=== PATIENT | male | born 1950 | race Caucasian/White ===

== ENCOUNTER 2021-01-28 11:05 | Inpatient (IN) | payer OTHER ==
[2021-01-28 12:31] VITALS: BMI 28.9
[2021-01-28] MEDS ORDERED: NICOTINE 10 MG CARTRIDGE (INHALER) IH PRN (14:12)
[2021-01-28] MEDS ORDERED: MAG HYDROX/AL HYDROX/SIMETH 30 ML UNIT-DOSE CUP PO PRN (14:12)
[2021-01-28] MEDS ORDERED: MENTHOL/PHENOL 1 EACH UD MM PRN (14:12)
[2021-01-28] MEDS ORDERED: MAGNESIUM HYDROX 2400MG/30ML ORAL SUSPENSION 30 ML CUP PO PRN (14:12)
[2021-01-28] MEDS ORDERED: BISMUTH SUBSALICYLATE 262 MG/15 ML BTL PO PRN (14:12)
[2021-01-28] MEDS ORDERED: ONDANSETRON *ODT* 4 MG TABLET SL PRN (14:12)
[2021-01-28] MEDS ORDERED: IBUPROFEN 400 MG TABLET (FP) PO PRN (14:12)
[2021-01-28] MEDS ORDERED: MAGNESIUM CITRATE 300 ML BOTTLE PO PRN (14:12)
[2021-01-28] MEDS ORDERED: ACETAMINOPHEN 325 MG TABLET (FP) PO PRN ×2 (14:12)
[2021-01-28] MEDS: GABAPENTIN 300 MG CAPSULE PO SCH ×2 (15:27→22:21)
[2021-01-28 15:28] LABS: HEMATOCRIT 37.7 % (35.4-49); HEMOGLOBIN 12.7 GM/dL (11.7-16.9); MCH 30.7 pg (25.7-33.7); MCHC 33.6 g/dl (32.0-35.9); MEAN CELL VOLUME 91.3 fl (80-96); PLATELET COUNT 336 10^3/uL (134-434); RBC 4.13 M/mm3 (4.00-5.60); RDW 13.2 % (11.9-15.9); WHITE BLOOD COUNT 7.8 K/mm3 (4.0-10.0)
[2021-01-28 15:29] LABS: ALBUMIN 3.8 g/dl (3.4-5.0); CALCIUM 9.7 mg/dL (8.5-10.1)
[2021-01-28 15:33] LABS: CREATININE 0.8 mg/dL (0.55-1.3)
[2021-01-28 15:34] LABS: BILIRUBIN,TOTAL 0.4 mg/dL (0.2-1); TOT PROT 7.8 g/dl (6.4-8.2)
[2021-01-28] MEDS: METHOCARBAMOL 500 MG TABLET PO PRN ×2 (15:49→22:21)
[2021-01-28] MEDS ORDERED: hydrOXYzine PAMOATE 25 MG CAPSULE (FP) PO SCH (18:00)
[2021-01-28] MEDS ORDERED: MELATONIN 5 MG TABLETS PO SCH (22:00)
[2021-01-28] MEDS ORDERED: SUVOREXANT 10 MG TABLET PO PRN (22:00)
[2021-01-28] MEDS: THIAMINE HCL 100 MG TABLET (FP) PO SCH (22:21)
[2021-01-29] MEDS: GABAPENTIN 300 MG CAPSULE PO SCH ×3 (06:09→21:56)
[2021-01-29] MEDS: BICTEGRAV/EMTRICIT/TENOFOV (BIKTARVY) 50-200-25 MG TABLET PO SCH (08:04)
[2021-01-29] MEDS: TAMSULOSIN HCL 0.4 MG CAP PO SCH (08:04)
[2021-01-29] MEDS ORDERED: LORazepam 1 MG TABLET PO PRN (09:46)
[2021-01-29] MEDS: amLODIPine BESYLATE 5 MG TABLET (FP) PO SCH (10:09)
[2021-01-29] MEDS: PRENATAL VITAMINS W/ FOLIC ACID TABLET (FP) PO SCH (10:09)
[2021-01-29] MEDS: METHOCARBAMOL 500 MG TABLET PO PRN (10:09)
[2021-01-29] MEDS: LORazepam 2 MG TABLET PO SCH ×3 (10:38→22:00)
[2021-01-29] MEDS: THIAMINE HCL 100 MG TABLET (FP) PO SCH (21:56)
[2021-01-30] MEDS: LORazepam 1 MG TABLET PO SCH ×2 (06:04→11:25)
[2021-01-30] MEDS: GABAPENTIN 300 MG CAPSULE PO SCH ×3 (06:04→22:15)
[2021-01-30] MEDS: METHOCARBAMOL 500 MG TABLET PO PRN ×2 (10:58→17:14)
[2021-01-30] MEDS: BICTEGRAV/EMTRICIT/TENOFOV (BIKTARVY) 50-200-25 MG TABLET PO SCH (10:58)
[2021-01-30] MEDS: TAMSULOSIN HCL 0.4 MG CAP PO SCH (10:58)
[2021-01-30] MEDS: PRENATAL VITAMINS W/ FOLIC ACID TABLET (FP) PO SCH (10:58)
[2021-01-30] MEDS: amLODIPine BESYLATE 5 MG TABLET (FP) PO SCH (10:58)
[2021-01-30] MEDS: LORazepam 0.5 MG TABLET PO SCH ×2 (17:17→22:16)
[2021-01-30] MEDS: THIAMINE HCL 100 MG TABLET (FP) PO SCH (22:15)
[2021-01-31] MEDS ORDERED: LORazepam 0.5 MG TABLET PO PRN
[2021-01-31] MEDS: LORazepam 0.5 MG TABLET PO SCH ×2 (05:16→10:29)
[2021-01-31] MEDS: TAMSULOSIN HCL 0.4 MG CAP PO SCH (07:39)
[2021-01-31] MEDS: BICTEGRAV/EMTRICIT/TENOFOV (BIKTARVY) 50-200-25 MG TABLET PO SCH (07:49)
[2021-01-31 09:45] VITALS: BP 150/79; PULSE 73; TEMP 97.2
[2021-01-31] MEDS: amLODIPine BESYLATE 5 MG TABLET (FP) PO SCH (10:29)
[2021-01-31] MEDS: PRENATAL VITAMINS W/ FOLIC ACID TABLET (FP) PO SCH (10:29)
[2021-02-01] MEDS ORDERED: LORazepam 0.5 MG TABLET PO ONE (05:00)
== END 2021-01-31 10:30 | disposition left against medical advice (07) | DRG 894 ==
LOC: YASAS 11:05 → UNDOADMIN 14:02 → Y6N 14:02
PROVIDERS: ADMIT Allergy & Immunology; ATTEND Allergy & Immunology
PROC: HZ2ZZZZ Detoxification Services for Substance Abuse Treatment (ICD-10-PCS; principal; 2021-01-28)
DX: F10.230 Alcohol dependence with withdrawal, uncomplicated (principal); F12.20 Cannabis dependence, uncomplicated; F10.282 Alcohol dependence with alcohol-induced sleep disorder; F10.280 Alcohol dependence with alcohol-induced anxiety disorder; F10.24 Alcohol dependence with alcohol-induced mood disorder; Z21 Asymptomatic human immunodeficiency virus [HIV] infection status; I10 Essential (primary) hypertension; Z96.611 Presence of right artificial shoulder joint; Z85.46 Personal history of malignant neoplasm of prostate; Z59.01 Sheltered homelessness; Z88.2 Allergy status to sulfonamides
CPT/HCPCS: 36415; 80053; 82962; 85027; 86780; 93005; 93010; C9803; U0003; U0005